=== PATIENT | female | born 1995 | race Caucasian/White ===

== ENCOUNTER 2017-10-21 06:56 | Emergency (ER) | payer OTHER ==
--- NOTE | 2017-10-21 09:21 | RAD ---
Indication: Left hand pain. 5 views of left hand demonstrates no fracture. No other bone or joint abnormality is noted. IMPRESSION: No fracture of the left hand is noted.
[2017-10-21 09:46] VITALS: BP 124/68
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
== END 2017-10-21 09:46 | disposition home or self-care (01) ==
LOC: ED 06:56
DX: S63.602A Unspecified sprain of left thumb, initial encounter (principal); S60.529A Blister (nonthermal) of unspecified hand, initial encounter; S50.811A Abrasion of right forearm, initial encounter; V49.9XXA Car occupant (driver) (passenger) injured in unspecified traffic accident, initial encounter; Y92.410 Unspecified street and highway as the place of occurrence of the external cause
CPT/HCPCS: 99282